=== PATIENT | female | born 1955 | race Caucasian/White ===

== ENCOUNTER 2016-10-02 11:11 | Emergency (ER) | payer MEDICARE, MEDICAID ==
[2016-10-02 11:26] VITALS: BMI 37.0
[2016-10-02] MEDS ORDERED: DEXTROSE 25 GM/50 ML PFS IV ONE (11:41)
[2016-10-02] MEDS ORDERED: NALOXONE 2 MG/2 ML SYRINGE IV STA (11:55)
--- NOTE | 2016-10-02 11:58 | EDPRACDOC ---
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anlog [Lantus] 25 unit SQ BID 10/28/12 Levothyroxine Sodium [Synthroid] 125 mcg PO QAM 10/28/12 Mometasone Furoate [Nasonex] 2 spray YAMINI DAILY 10/28/12 Montelukast Sodium [Singulair] 10 mg PO HS 10/28/12 Pramipexole [Mirapex] 0.125 mg PO HS 10/28/12 Sitagliptin Phosphate [Januvia] 100 mg PO DAILY 10/28/12 Baclofen 20 mg PO BID PRN 04/24/14 CYANOCOBALAMIN (Vitamin B-12) [Vitamin B-12 (cyanocobalamin)] 1,000 mcg IM .MONTHLY 04/24/14 Nystatin 15 gm TP TID 04/24/14 Ondansetron HCl [Zofran] 8 mg PO TID PRN 04/24/14 Bupropion HCl [Wellbutrin Xl] 450 mg PO QAM 02/18/16 Insulin Aspart [Novolog Flexpen] 5 unit SQ .BEFORE MEALS 02/18/16 Oxycodone HCl [Oxycodone Immediate Release] 20 mg PO Q8H 02/18/16 TOPIRAMATE (Anticonvulsant) [Topamax] 100 mg PO HS 02/18/16 Tiotropium [place] [Spiriva] 18 mcg INH DAILY 02/18/16 Celecoxib (anti-inflammatory) [Celebrex] 100 mg PO DAILY 10/02/16 Ciprofloxacin HCl [Cipro] 500 mg PO BID #20 tab 10/02/16 Duloxetine HCl [Cymbalta] 60 mg PO DAILY 10/02/16 Hydromorphone HCl [Exalgo] 32 mg PO DAILY 10/02/16 Ipratropium [place] 0.2 mg INH QID 10/02/16 Linaclotide [Linzess] 290 mcg PO DAILY 10/02/16 Milnacipran HCl [Savella] 50 mg PO BID 10/02/16 Naloxegol Oxalate [Movantik] 25 mg PO QAM 10/02/16 Rivaroxaban [Xarelto] 20 mg PO DAILY 10/02/16 Allergies/Adverse Reactions: Allergies Allergy/AdvReac Type Severity Reaction Status Date / Time iodine Allergy Intermediate Unknown/See Verified 10/02/16 13:31 Comments aspirin Allergy Unknown Itching Verified 10/02/16 13:31 latex Allergy Unknown Verified 10/02/16 13:31 - History of Present Illness Onset: 1030 Exact Onset of Symptoms: Unknown HPI: PATIENT WAS FOUND WITH CONFUSION. EMS FOUND BLOOD SUGAR AT 40. GIVEN D50. ON REPEAT EXAM IN ER PATIENT NOW WITH BLOOD SUGAR OF 80. STILL VERY CONFUSED. Weakness: Bilateral: Generalized Symptom Severity: Reports: Bedridden ED Past Medical History - History Reviewed Yes Nurses notes reviewed and agree except as marked Travel Outside of [place] in the Last 3 Months?: No - Patient Medical History Cardiac History: Reports: Hypertension, Congestive Heart Failure (questionable) , Syncope Respiratory History: Reports: Asthma, COPD GI/ History: Reports: Kidney Stones, Gastroesophageal Reflux Musculoskeletal History: Reports: Arthritis Psychological History: Reports: Anxiety, Bipolar Disorder. Denies: Depression Systemic History: Reports: Diabetes, Hypothyroidism. Denies: Cancer Surgical History: Reports: Cholecystectomy, Hysterectomy - Family Medical History Reports: Hypertension (mother and brother), Diabetes (paternal aunt), Cancer ( brother - unsure of type), Cardiac Disorders (mother and brother). Denies: Stroke - Social Medical History Smoking Status: Former smoker EDM Review of Systems - Review of Systems ROS Unobtainable: Yes Review of systems cannot be obtained due to the patient's medical condition - Physical Exam Constitutional: Distress (MODERATE), Somnolent Oriented to: Unable to Test Last recorded Vital Signs: Oxygen Pulse Oxygen Saturation O2 Device Oxygen Flow Rate Fraction of Inspired Oxygen ( FIO2) - HEENT Head: Normal Eye Exam: Normal Oropharynx: Normal Tympanic Membrane: Normal ENT EAC: Normal TMJ: Normal Nose: No Symptoms Reported Neck: Normal - Respiratory/Cardiovascular Respiratory: Normal - CTA Cardiovascular: Tachycardia - GI Auscultation: Normal Palpation: Normal Tenderness: Non tender Rectal Exam: Normal - Bladder: Normal - Musculoskeletal Back: Normal Extremities: Normal - Integumentary Skin: Cool, Dry Lymphatics: Normal - Neurologic Memory Impaired: Unable to Test Motor Function: Unable to Test Cranial Nerve: Unable to Test Cerebellar: Unable to Test - Re-evaluation Re-evaluation 1 Re-evaluation Time: 12:30 (AFTER NARCAN PATIENT ALERT AND NAUSEATED. JUMPING OF BED COMPLLLAINS OF PAIN) - Results 10/02/16 11:55 10/02/16 11:55 POC Capillary Glucose 81 MG/DL (70-99) 10/02/16 11:36 Lab Results 10/02/16 11:36 POC Capillary Glucose 81 - EKG EKG #1 EKG Time: 12:07 -: Yes EKG interpreted by me Rate: bpm: 68 [place]: Normal Rhythm: NSR Block: RBBB Hypertrophy: None ST: Normal Decision Time to Discharge: 14:50 - Departure Yes I personally saw and evaluated the patient. Disposition: Home Condition: Stable Final Diagnosis: Hypoglycemia Narcotic overdose Qualifiers: Encounter type: initial encounter Injury intent: accidental or unintentional Qualified Code(s): T40.601A - Poisoning by unspecified narcotics, accidental ( unintentional), initial encounter UTI (urinary tract infection) Qualifiers: Urinary tract infection type: acute cystitis Hematuria presence: without hematuria Qualified Code(s): N30.00 - Acute cystitis without hematuria Instructions: Weakness (General), Urinary Tract Infection in Women (ED), Dysuria Education/Counseling Given To: Patient Education/Counseling Given Regarding: Diagnosis, Treatment, Prognosis, Follow Up Referrals: Arturo Le MD [Primary Care Provider] - One Week Prescriptions: Ciprofloxacin HCl [Cipro] 500 mg PO BID #20 tab
[2016-10-02 12:02] LABS: AUTOMATED BASOPHIL 0.3 % (0-2); AUTOMATED EOSINOPHIL 0.9 % (0-5); AUTOMATED LYMPH 16.2 % (17-44); AUTOMATED MONOCYTE 9.9 % (3-10); AUTOMATED NEUTROPHIL 72.7 % (45-76); MPV 7.7 fL (7.4-10.4)
--- NOTE | 2016-10-02 12:16 | DIRPT ---
CLINICAL DATA: Confused patient. Low blood sugar. EXAM: PORTABLE CHEST 1 VIEW COMPARISON: 08/10/2016 FINDINGS: The heart size and mediastinal contours are within normal limits. Both lungs are clear. The visualized skeletal structures are unremarkable. IMPRESSION: No active disease. Electronically Signed By: Joanna Ramesh On: 10/02/2016 12:14
[2016-10-02 12:20] LABS: PARTIAL THROMB. TIME 28.2 SEC (22-35); PT-INR 1.3
[2016-10-02 12:22] LABS: BLOOD UREA NITROGEN 17 MG/DL (7-17); CALCIUM 8.9 MG/DL (8.4-10.2); CALCULATED OSMOLALITY 273 MOs/Kg (270-290); CHLORIDE 103 mEq/L (98-107); GLUCOSE 133 MG/DL (70-99); SODIUM LEVEL 140 mEq/L (137-146); TOTAL PROTEIN 6.6 G/DL (6.3-8.2)
[2016-10-02] MEDS ORDERED: LORAZEPAM 2 MG/ML VIAL IV ONE (12:28)
[2016-10-02] MEDS ORDERED: ONDANSETRON HCL 4 MG/2 ML VIAL IV ONE (12:28)
[2016-10-02 13:14] LABS: ALL NEG? NO
[2016-10-02 13:21] LABS: LEUKOCYTES/URINE 2+ (NEGATIVE); NITRITE/URINE POS (NEGATIVE); URINE OCCULT BLOOD NEG (NEG/TRACE); WBC/URINE TNTC (0-5)
[2016-10-02 13:24] LABS: MDMA* NEG (NEGATIVE); METHAMPHETAMINES NEG (NEGATIVE); OXYCODONE *POSITIVE* (NEGATIVE)
[2016-10-02 14:23] VITALS: TEMP 98
--- NOTE | 2016-10-02 14:41 | DIRPT ---
CLINICAL DATA: Altered mental status/ confusion with unresponsiveness. EXAM: CT HEAD WITHOUT CONTRAST TECHNIQUE: Contiguous axial images were obtained from the base of the skull through the vertex without intravenous contrast. COMPARISON: August 10, 2016 FINDINGS: The ventricles are normal in size and configuration. There is no intracranial mass, hemorrhage, extra-axial fluid collection, or midline shift. Mari-white compartments are normal. No acute infarct evident. The bony calvarium appears intact. The mastoid air cells are clear. No intraorbital lesions are identified. IMPRESSION: Study within normal limits and stable. Electronically Signed By: Isaias Singh III, M.D. On: 10/02/2016 14:38
[2016-10-02] MEDS ORDERED: CIPROFLOXACIN HCL 500 MG TAB PO ONE (14:53)
[2016-10-02 15:04] VITALS: BP 118/73; PULSE 104
== END 2016-10-02 15:03 | disposition home or self-care (01) ==
LOC: ED 11:11
DX: N30.00 Acute cystitis without hematuria (principal); T40.601A Poisoning by unspecified narcotics, accidental (unintentional), initial encounter; E11.649 Type 2 diabetes mellitus with hypoglycemia without coma; Z79.84 Long term (current) use of oral hypoglycemic drugs; Z79.4 Long term (current) use of insulin
CPT/HCPCS: 36415; 70450; 71010; 80053; 80307; 81001; 82962; 83605; 84484; 85025; 85610; 85730; 87077; 87086; 87186; 93005; 96374; 96375; 99284; A9270; J2060; J2310; J2405; J7060; J3490